=== PATIENT | male | born 1990 | race Caucasian/White ===

== ENCOUNTER 2017-05-21 05:08 | Emergency (ER) | payer MEDICARE, MEDICAID ==
[2017-05-21 05:34] VITALS: BP 144/61
--- NOTE | 2017-05-21 05:45 | EDM.PDOC ---
ED HPI GENERAL MEDICAL PROBLEM - General Chief Complaint: ENT Problem Stated Complaint: TOOTHACHE Time Seen by Provider: 05/21/17 05:30 Source of Information: Reports: Patient History Limitations: Reports: No Limitations - History of Present Illness INITIAL COMMENTS - FREE TEXT/NARRATIVE: 27-year-old male with a right lower mandible dental pain. He has diffuse deep caries. No fevers or chills, no swelling. Pain has been present for 2 days. Onset: Gradual (Over the past 2 days) Severity: Moderate Worsens with: Reports: Other (Hot or cold touching the area causes increased pain) - Related Data Allergies Allergy/AdvReac Type Severity Reaction Status Date / Time No Known Allergies Allergy Verified 08/08/16 21:44 Home Meds: Home Meds NK [No Known Home Meds] 08/08/16 [History] Past Medical History Gastrointestinal History: Reports: GERD Psychiatric History: Reports: Depression, Psych Hospitalization(s), Other (See Below) Other Psychiatric History: spelling reading - Past Surgical History GI Surgical History: Reports: EGD Social & Family History - Tobacco Use Smoking Status *Q: Never Smoker Second Hand Smoke Exposure: No - Caffeine Use Caffeine Use: Reports: Soda - Recreational Drug Use Recreational Drug Use: No - Living Situation & Occupation Living situation: Reports: with Significant Other Occupation: Employed ED ROS ENT - Review of Systems Review Of Systems: See Below Constitutional: Denies: Fever HEENT: Reports: Dental Pain, Other (He also has a fairly large aphthous ulcer in this area) Respiratory: Denies: Shortness of Breath GI/Abdominal: Reports: Nausea Skin: Reports: No Symptoms Neurological: Denies: Headache Psychiatric: Reports: Anxiety ED EXAM, ENT - Physical Exam Exam: See Below Exam Limited By: No Limitations General Appearance: Alert, Anxious Mouth/Throat: Dental Pain, Other (Numerous dental caries especially in the molars, there is a small amount of erythema and an aphthous ulcer near the second molar right mandible) Course - Vital Signs Last Recorded V/S: Last Vital Signs Temp 97 F 05/21/17 05:30 Pulse 77 05/21/17 05:30 Resp 18 05/21/17 05:30 BP 144/61 H 05/21/17 05:30 Pulse Ox 95 05/21/17 05:30 - Re-Assessments/Exams Free Text/Narrative Re-Assessment/Exam: 05/21/17 05:42 Some of this pain may be coming from the aphthous ulcer but there appears to be a small amount of swelling as well. Patient will be placed on penicillin and is going to try to see the dentist later today. Departure - Departure Time of Disposition: 06:01 Disposition: Home, Self-Care 01 Condition: Good Clinical Impression: Pain, dental, Aphthous ulceration - Discharge Information Instructions: Dental Abscess, [id number] Referrals: PCP,None [Primary Care Provider] - Forms: ED Department Discharge Care Plan Goals: Take antibiotic as prescribed, and see the dentist as soon as possible. Ibuprofen or naproxen will help as well. Add Tylenol as needed.
== END 2017-05-21 06:01 | disposition home or self-care (01) ==
LOC: JP.ED 05:08
DX: K12.0 Recurrent oral aphthae (principal); K08.89 Other specified disorders of teeth and supporting structures
CPT/HCPCS: 99283